=== PATIENT | female | born 1990 | race Two or more races ===

== ENCOUNTER 2016-08-28 22:26 | Emergency (ER) | payer MEDICAID ==
[2016-08-28 22:34] VITALS: TEMP 97.7; BMI 21.8
--- NOTE | 2016-08-28 23:39 | DIRPT ---
CLINICAL DATA: Chronic left ankle pain and swelling. Initial encounter. EXAM: LEFT ANKLE COMPLETE - 3+ VIEW COMPARISON: None. FINDINGS: There is no evidence of fracture or dislocation. The ankle mortise is intact; the interosseous space is within normal limits. No talar tilt or subluxation is seen. The joint spaces are preserved. An ankle joint effusion is noted. IMPRESSION: No evidence of fracture or dislocation. Electronically Signed By: Juanjose Dunn M.D. On: 08/28/2016 23:36
--- NOTE | 2016-08-28 23:44 | EDPRACDOC ---
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 NO KNOWN INJURY. OTHERWISE NO SXS. FEELS BETTER WHEN SHE IS OFF HER FEET. Ankle Problem Location: Reports: Left Mechanism: Reports: None Able to Bear Weight: Fully Pain Severity: Reports: Mild Associated Signs & Symptoms: Reports: None ED Past Medical History - History Reviewed Yes Nurses notes reviewed and agree except as marked - Patient Medical History Psychological History: Denies: Depression Systemic History: Denies: Cancer Surgical History: Denies: Hysterectomy - Social Medical History Smoking Status: Never smoker EDM Review of Systems - Review of Systems ROS Negative Except as Marked: Yes All systems reviewed and were negative except as marked - Physical Exam Constitutional: No apparent distress Oriented to: Time, Person, Place Last recorded Vital Signs: Last Vital Signs Temp 97.7 F 08/28/16 22:31 Pulse 97 08/28/16 22:31 Resp 20 08/28/16 22:31 BP 115/58 L 08/28/16 22:31 Pulse Ox 99 08/28/16 22:31 Oxygen Pulse Oxygen Saturation 99 O2 Device Room Air Oxygen Flow Rate Fraction of Inspired Oxygen ( FIO2) ED Ankle Problem Phys Exam - Musculoskeletal Ankle: Normal Achilles Tendon: Normal Knee: Normal Lower Leg: Normal Foot: Normal Distal Function/Circulation: Normal - Integumentary Skin: Normal - Results Urine Test Neg (NEGATIVE) 08/28/16 22:35 Lab Results 08/28/16 22:35 Urine Test Neg Decision Time to Discharge: 23:43 - Departure Yes I personally saw and evaluated the patient. Disposition: Home Condition: Good Final Diagnosis: LEFT ANKLE PAIN Instructions: RICE Therapy (ED) Education/Counseling Given To: Patient Education/Counseling Given Regarding: Diagnosis, Treatment, Prognosis Referrals: Norah Mascorro PA [Primary Care Provider] - One Week Prescriptions: New Ketorolac Tromethamine 10 mg PO Q6H PRN #20 tab PRN Reason: Pain
[2016-08-29 02:36] VITALS: BP 115/65; PULSE 70
== END 2016-08-29 01:00 | disposition home or self-care (01) ==
LOC: ED 22:26
DX: M25.572 Pain in left ankle and joints of left foot (principal)
CPT/HCPCS: 81025; 99283